=== PATIENT | female | born 1965 | race Caucasian/White ===

== ENCOUNTER 2016-09-19 19:27 | Emergency (ER) | payer OTHER | END 2016-09-19 21:01 | disposition home or self-care (01) | DX: R68.84 Jaw pain (principal); R03.0 Elevated blood-pressure reading, without diagnosis of hypertension ==

== ENCOUNTER 2016-10-10 15:44 | Outpatient (CLI) | payer OTHER ==
[2016-10-10] MEDS ORDERED: GADOBUTROL 10 MMOL/10 ML VIAL IVP ONE (16:40)
--- NOTE | 2016-10-10 18:21 | MRI Report ---
EXAM: MRI BRAIN WITHOUT AND WITH CONTRAST EXAM DATE: 10/10/2016 04:52 PM. CLINICAL HISTORY: Trigeminal neuralgia. COMPARISON: None. TECHNIQUE: Multiplanar, multisequence T1-weighted and fluid-sensitive MR sequences of the brain were performed. Sequences optimized for IAC and posterior fossa evaluation. Other: None. Without and with IV Contrast: Without and with 10 mm Gadavist. FINDINGS: IAC and posterior fossa: Unremarkable contours of the canalicular and cisternal segments of cranial n erves VII and VIII. No evidence for displacement or compression of the trigeminal nerves. Fluid signa l is present in Meckel's caves and within the inner ear structures bilaterally as expected. No abnorm al mass or enhancement in the posterior fossa including in the regions of the internal auditory canal s. Unremarkable symmetric-appearing cavernous sinuses. Brain Volume: Normal for age. Parenchyma/Dura: No masses, infarcts, or hemorrhage. No white matter lesions identified. Ventricles/Cisterns: Normal. No hydrocephalus. Sinuses: Minimal nonspecific maxillary and ethmoid mucosal thickening. Bones: No focal pathologic-appearing marrow signal changes in the skull or clivus. Other: None. IMPRESSION: 1. No focal lesions are identified in the posterior fossa to explain facial pain. 2. Unremarkable appearance of the brain, no acute abnormality or enhancing mass. 3. Minimal nonspecific paranasal sinus mucosal thickening. [facility] Referring Provider Line: [phone] SITE ID: [id number]
== END 2016-10-10 15:45 | disposition home or self-care (01) ==
LOC: DI 15:44
PROVIDERS: ATTEND Physician Assistant Medical
DX: G50.0 Trigeminal neuralgia (principal)
CPT/HCPCS: 70553; A9585

== ENCOUNTER 2016-11-21 14:18 | Outpatient (CLI) | payer OTHER ==
--- NOTE | 2016-11-22 07:48 | Mammography Report ---
DIGITAL BILATERAL SCREENING MAMMOGRAM: 11/21/2016 CLINICAL HISTORY: This is a 51-year-old female in for routine screening mammogram. Patient has no f amily history of breast cancer. Patient has no past history of breast surgeries. COMPARISON: 08/27/2007, 10/18/2010, 12/15/2014. TECHNIQUE: Craniocaudad and oblique lateral views of each breast were obtained with Hologic full-fie ld digital mammography. An axillary exaggerated craniocaudad view was done. FINDINGS: Breasts are primarily composed of adipose tissue. Interval appearance since preceding exa ms of an asymmetrical density on craniocaudad view in the inner aspect of the left breast. This asym metrical density measures 1 cm in diameter. It lies 9.4 cm medial to the left nipple. It is noted b oth on craniocaudad view and axillary exaggerated craniocaudad view. It is not seen on oblique later al view. It is also not seen on preceding exams. Recommend patient return for additional views of t he left breast including coned-down compression craniocaudad view and a lateral medial view. If hugo cated, a left breast ultrasound should also be done. No significant clusters of calcification are seen in the breasts. IMPRESSION: INTERVAL APPEARANCE SINCE PRECEDING EXAMS OF A 1 CM ASYMMETRICAL DENSITY IN THE INNER PECT OF THE LEFT BREAST. RECOMMEND PATIENT RETURN FOR ADDITIONAL VIEWS OF THE LEFT BREAST AND IF IND ICATED, LEFT BREAST ULTRASOUND. BI-RADS category 0. Incomplete. Needs additional imaging evaluation. Additional views of the left breast and if indicated, left breast ultrasound. STANDARD QUALIFYING STATEMENTS 1. This examination was reviewed with the aid of Computer-Aided Detection (CAD). 2. A negative or benign imaging report should not delay biopsy if clinically suspicious findings are present. Consider surgical consultation if warranted. More than 5% of cancers are not identified by i maging. 3. Dense breasts may obscure an underlying neoplasm. JOB #: [id number] EXT JOB #:[id number]
== END 2016-11-21 14:19 | disposition home or self-care (01) ==
LOC: DI 14:18
PROVIDERS: ATTEND Physician Assistant Medical
DX: Z12.31 Encounter for screening mammogram for malignant neoplasm of breast (principal); R92.2 Inconclusive mammogram
CPT/HCPCS: 77067

== ENCOUNTER 2016-12-05 12:40 | Outpatient (CLI) | payer OTHER ==
--- NOTE | 2016-12-05 14:21 | Mammography Report ---
DIGITAL DIAGNOSTIC LEFT MAMMOGRAM: 12/05/2016 CLINICAL INDICATION: Abnormal screening, asymmetry left breast. TECHNIQUE: Left true lateral, repeat CC, spot compression views. COMPARISON: 11/21/2016, 12/15/2014, 10/18/2010, 08/27/2007. FINDINGS: The left breast again demonstrates scattered fibroglandular densities. The asymmetry in th e inner left breast dissipates with additional compression. No underlying mass lesion or architectura l distortion is identified. IMPRESSION: NEGATIVE EXAMINATION. RECOMMENDATION: ROUTINE ANNUAL SCREENING UNLESS OTHERWISE CLINICALLY INDICATED. BIRADS CATEGORY 1-NEGATIVE. STANDARD QUALIFYING STATEMENTS 1. This examination was reviewed with the aid of Computer-Aided Detection (CAD). 2. A negative or benign imaging report should not delay biopsy if clinically suspicious findings are present. Consider surgical consultation if warranted. More than 5% of cancers are not identified by i maging. 3. Dense breasts may obscure an underlying neoplasm. JOB #: [id number] EXT JOB #:[id number]
== END 2016-12-05 12:41 | disposition home or self-care (01) ==
LOC: DI 12:40
PROVIDERS: ATTEND Physician Assistant Medical
DX: N63 Unspecified lump in breast (principal)

== ENCOUNTER → 2018-04-02 | Outpatient (CLI) | payer OTHER ==
[2018-04-02 12:28] LABS: BASOPHILS % (AUTO) 0.8 %; EOSINOPHILS # (AUTO) 0.3 10^3/uL (0.0-0.7); EOSINOPHILS % (AUTO) 4.1 %; HGB - HEMOGLOBIN 13.9 g/dL (12.0-16.0); LYMPHOCYTES # (AUTO) 1.5 10^3/uL (1.5-3.5); LYMPHOCYTES % (AUTO) 24.6 %; MEAN CORPUSCULAR HEMOGLOBIN 30.5 pg (27.0-31.0); MEAN CORPUSCULAR HGB CONC 33.7 g/dL (32.0-36.0); MEAN CORPUSCULAR VOLUME 90.5 fL (81.0-99.0); MEAN PLATELET VOLUME 7.6 fL (7.9-10.8); MONOCYTES # (AUTO) 0.5 10^3/uL (0.0-1.0); MONOCYTES % (AUTO) 8.1 %; NEUTROPHILS # (AUTO) 3.8 10^3/uL (1.5-6.6); NEUTROPHILS % (AUTO) 62.4 %; PLT - PLATELET COUNT 327 10^3/uL (130-450); RED BLOOD COUNT 4.57 10^6/uL (4.20-5.40); RED CELL DISTRIBUTION WIDTH 13.9 % (12.0-15.0); WHITE BLOOD COUNT 6.1 x10^3/uL (4.8-10.8)
[2018-04-02 12:51] LABS: ALBUMIN/GLOBULIN RATIO 1.4 (1.0-2.2); ALKALINE PHOSPHATASE 54 IU/L (42-121); ALT ALANINE AMINOTRANSFERASE 22 IU/L (10-60); AST ASPARTATE AMINOTRANSFERASE 20 IU/L (10-42); BILIRUBIN,TOTAL 0.5 mg/dL (0.2-1.0); BUN - BLOOD UREA NITROGEN 13 mg/dL (6-20); CALCIUM 8.6 mg/dL (8.5-10.3); CARBON DIOXIDE - CO2 26 mmol/L (21-32); CHLORIDE 105 mmol/L (101-111); CHOLESTEROL 190 mg/dL; CREATININE 0.8 mg/dL (0.4-1.0); GFR - MDRD 76 (>89); GLUCOSE 95 mg/dL (70-100); HDL CHOLESTEROL 48 mg/dL; LDL CHOLESTEROL,CALCULATED 125 mg/dL; LDL/HDL RATIO 2.6 (<4.4); SODIUM 137 mmol/L (135-145); TOTAL PROTEIN 6.8 g/dL (6.7-8.2); VLDL CHOLESTEROL 17 mg/dL
== END ==
LOC: LAB.WCP 08:00
PROVIDERS: ATTEND Physician Assistant Medical
DX: Z00.00 Encounter for general adult medical examination without abnormal findings (principal)
CPT/HCPCS: 36415; 80053; 80061; 83721; 84443; 85025

== ENCOUNTER 2018-08-18 15:29 | Outpatient (CLI) | payer OTHER ==
--- NOTE | 2018-08-18 16:27 | XRAY Report ---
Reason: CHEST PAIN Procedure Date: 08/18/2018 Accession Number: [id number] / [id number] Procedure: WCP - Chest 2 View X-Ray CPT Code: 61471 FULL RESULT: EXAM: CHEST RADIOGRAPHY EXAM DATE: 08/18/2018 03:38 PM. CLINICAL HISTORY: CHEST PAIN. COMPARISON: None. TECHNIQUE: 2 views. FINDINGS: Lungs/Pleura: No focal opacities evident. No pleural effusion. No pneumothorax. Normal volumes. Mediastinum: Heart and mediastinal contours are unremarkable. Other: None. IMPRESSION: Normal 2-view chest radiography. [facility]
== END 2018-08-18 15:30 | disposition home or self-care (01) ==
LOC: DI.WCP 15:29
PROVIDERS: ATTEND Physician Assistant Medical
DX: R07.9 Chest pain, unspecified (principal)
CPT/HCPCS: 71046

== ENCOUNTER 2018-09-10 07:43 | Outpatient (CLI) | payer OTHER ==
--- NOTE | 2018-09-10 08:56 | Mammography Report ---
Reason: SCREENING MAMMO Procedure Date: 09/10/2018 Accession Number: [id number] / [id number] Procedure: ANGIE - Screening Mammo w/Paulo CPT Code: FULL RESULT: EXAM: Screening Mammo w/Paulo DATE: 09/10/2018 8:27 AM CLINICAL HISTORY: Screening examination. History of early menses TECHNIQUE: (B) - Bilateral CC and MLO views were obtained. A left medially exaggerated CC view was obtained. COMPARISON: 12/05/2016 through 12/15/2014. PARENCHYMAL PATTERN: (A) - The breast(s) demonstrate(s) scattered fibroglandular densities. FINDINGS: There are coarse typically benign calcifications. There are no suspicious masses, calcifications, or areas of distortion. IMPRESSION: Benign findings. BI-RADS category 2. RECOMMENDATION: (ANNUAL) - Recommend routine annual screening mammography. BI-RADS CATEGORY: (2) - Benign Findings. STANDARD QUALIFYING STATEMENTS: 1. This examination was not reviewed with the aid of Computer-Aided Detection (CAD). 2. A negative or benign imaging report should not preclude biopsy if clinically suspicious findings are present. 3. Dense breasts may obscure an underlying neoplasm. 4. This examination was reviewed with the aid of 3D breast imaging (tomosynthesis).
== END 2018-09-10 07:44 | disposition home or self-care (01) ==
LOC: DI 07:43
DX: Z12.31 Encounter for screening mammogram for malignant neoplasm of breast (principal)
CPT/HCPCS: 77063; 77067

== ENCOUNTER 2018-09-17 12:43 | Outpatient (CLI) | payer OTHER ==
--- NOTE | 2018-09-17 17:10 | CARDIAC PROCEDURE NOTE ---
DATE OF SERVICE: 09/17/2018 Physician: Shanique Tenorio MD, [facility] INDICATIONS: Chest pain. CARDIAC RISK FACTORS: Obesity (229 pounds), family history of heart disease and ex-smoker (quit five years ago). PROCEDURE: After signing Informed consent, the patient underwent a Rosalio- protocol treadmill stress test with Nuclear myocardial perfusion imaging. RESTING HEART RATE: 99. Peak heart rate: 146 (86% predicted maximum heart rate for age). RESTING BLOOD PRESSURE: 125/90. Peak blood pressure: 149/70. The patient exercised for 5 minutes and 8 seconds on Rosalio protocol treadmill stress test. She achieved a peak heart rate of 146 (86% predicted max HR for ager) and 7.1 METS. The patient developed [id number] shortness of breath. Oxygen saturation was 98% on room air at this time. She developed no chest pain with exercise. BASELINE EKG: Normal sinus rhythm, first-degree block, left atrial enlargement, vertical axis, rare PVCs. EKG AT [facility]: T-wave flattening in leads II, III and aVF and V3 through V6, and [address]-segment depressions in leads II, III, and aVF. A rare PVC was also seen. SUMMARY 1. Abnormal resting EKG. 2. Fair-Poor exercise tolerance. Normal blood pressure response to exercise, but accelerated heart rate response to exercise. 3. Abnormal ST and T-wave changes concerning for ischemia, on this exercise stress test, at an adequate level of stress achieved. 4. Nuclear images reported separately. TD: 09/17/2018 15:43 FABIO
--- NOTE | 2018-09-18 08:16 | Nuclear Medicine Report ---
Reason: CHEST PAIN Procedure Date: 09/17/2018 Accession Number: [id number] / [id number] Procedure: NM - Myocardial Perfusion STR/RST CPT Code: FULL RESULT: EXAM: SINGLE-ISOTOPE EXERCISE STRESS TEST. SINGLE-ISOTOPE AND ONE-DAY REST/STRESS MYOCARDIAL PERFUSION SCANS WITH TOMOGRAPHIC IMAGING, QUANTITATIVE ANALYSIS, WALL MOTION ANALYSIS AND CALCULATION OF EJECTION FRACTION. EXAM DATE: 09/17/2018 05:17 PM. CLINICAL HISTORY: CHEST PAIN. COMPARISON: None available. TECHNIQUE: A rest myocardial perfusion scan was done with tomography after the intravenous administration of 10.6 mCi Tc-99m sestamibi. After an appropriate delay, a treadmill exercise stress was performed according to department protocol. The patient exercised for 5 minutes and 8 seconds. The maximum heart rate was 146 bpm, which was 86% of the maximum predicted heart rate of 169 bpm. At approximately peak heart rate, 43 mCi of Tc-99m sestamibi was injected for stress myocardial perfusion scan. Motion correction was applied when appropriate. Gated tomographic images were obtained for wall motion analysis and computation of left ventricular ejection fraction. FINDINGS: On visual analysis, there is a mild partially fixed and partially reversible defect in the mid to distal anteroseptal wall versus breast attenuation artifact. Computer analysis Summed stress score 5 Summed rest score 0 Summed difference score 5 Wall motion analysis demonstrates no focal wall motion abnormality. The left ventricular end-diastolic volume is 75 cc. The left ventricular end-systolic volume is 22 cc. The left ventricular ejection fraction is calculated to be 71%. IMPRESSION: 1. On visual analysis, there is a mild partially fixed and partially reversible defect in the mid to distal anteroseptal wall. 2. Normal left ventricular ejection fraction of 71%. 3. Normal segmental and global wall motion. 4. Normal left ventricular cavity size, no change with stress. 5. Based on computer analysis, mildly abnormal study with moderate ischemia. Please correlate findings with stress ECG tracings and procedure notes. [facility]
== END 2018-09-17 12:44 | disposition home or self-care (01) ==
LOC: DI 12:43
PROVIDERS: ATTEND Physician Assistant Medical
DX: R07.9 Chest pain, unspecified (principal); R94.31 Abnormal electrocardiogram [ECG] [EKG]; Z87.891 Personal history of nicotine dependence; Z82.49 Family history of ischemic heart disease and other diseases of the circulatory system
CPT/HCPCS: 78452; 93017; A9500

== ENCOUNTER 2019-06-28 11:20 | Outpatient (CLI) | payer OTHER, BC | END 2019-06-28 11:21 | disposition critical access hospital (66) | LOC: EMS 11:20 | PROVIDERS: ATTEND Surgery | DX: M54.5 Low back pain (principal); V58.4XXA Person boarding or alighting a pick-up truck or van injured in noncollision transport accident, initial encounter; Y93.89 Activity, other specified; Y99.0 Civilian activity done for income or pay | CPT/HCPCS: A0425; A0427 ==

== ENCOUNTER 2019-06-28 11:46 | Emergency (ER) | payer OTHER, BC ==
--- NOTE | 2019-06-28 12:21 | ED Physician Documentation ---
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 Altered mental status after the event. Reportedly thought that the year was 2001. She still remains slightly confused. She initially complained of back pain. Worse with movement and better with rest. Received fentanyl en route Review of Systems Unable to obtain: AMS Constitutional: denies: Fever GI: denies: Vomiting Skin: denies: Rash Neurologic: denies: Focal weakness, Numbness PD PAST MEDICAL HISTORY - Past Medical History Past Medical History: No - Past Surgical History Past Surgical History: Yes HEENT: Tonsil/Adenoidectomy - Present Medications Home Medications: Ambulatory Orders Medication Instructions Recorded Confirmed Gabapentin [Neurontin] 300 mg PO TID #90 capsule 09/19/16 Cyclobenzaprine [Flexeril] 10 mg PO TID PRN #20 tablet 06/28/19 Meloxicam [Mobic] 15 mg PO DAILY PRN #20 tablet 06/28/19 - Allergies Allergies/Adverse Reactions: Allergies Allergy/AdvReac Type Severity Reaction Status Date / Time codeine Allergy Emesis Verified 06/28/19 11:51 - Social History Does the pt smoke?: No Smoking Status: Never smoker Does the pt drink ETOH?: No Does the pt have substance abuse?: No - Immunizations Immunizations are current?: Yes PD ED PE NORMAL - Vitals Vital signs reviewed: Yes - General General: No acute distress, Other (Alert, oriented to person and place. 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, No motor deficit, No sensory deficit Eye Opening: Spontaneous Motor: Obeys Commands Verbal: Confused GCS Score: 14 - Psych Psych: Normal mood, Normal affect Results - Vitals Vitals: Vital Signs - 24 hr 06/28/19 06/28/19 11:51 12:00 Temperature 36.7 C Heart Rate 88 85 Respiratory 14 18 Rate Blood Pressure 138/82 H 132/92 H O2 Saturation 94 95 Oxygen O2 Source Room air - Labs Labs: Laboratory Tests 06/28/19 06/28/19 06/28/19 12:30 12:30 13:32 WBC 9.4 RBC 4.63 Hgb 13.8 Hct 42.3 MCV 91.4 MCH 29.8 MCHC 32.6 RDW 13.4 Plt Count 303 MPV 8.7 Neut # (Auto) 7.6 H Lymph # (Auto) 1.1 L [place] # (Auto) 0.6 Eos # (Auto) 0.1 Baso # (Auto) 0.1 Absolute Nucleated RBC 0.00 Nucleated RBC % 0.0 Sodium 136 Potassium 3.5 Chloride 99 L Carbon Dioxide 23 Anion Gap 14.0 H BUN 15 Creatinine 0.7 Estimated GFR (MDRD) 88 L Glucose 134 H Calcium 8.8 Total Bilirubin 0.5 AST 21 ALT 24 Alkaline Phosphatase 62 Total Protein 6.9 Albumin 4.0 Globulin 2.9 Albumin/Globulin Ratio 1.4 Lipase 28 Urine Color YELLOW Urine Clarity HAZY Urine pH 7.5 Ur Specific [place] 1.015 Urine Protein NEGATIVE Urine Glucose (UA) NEGATIVE Urine Ketones TRACE Urine Occult Blood TRACE-INTA Urine Nitrite NEGATIVE Urine Bilirubin NEGATIVE Urine Urobilinogen 0.2 (NORMAL) Ur Leukocyte Esterase MODERATE H Urine RBC 0-5 Urine WBC 11-25 H Ur Squamous Epith Cells MANY Squamous H Urine Bacteria Few Ur Microscopic Review INDICATED Urine Culture Comments NOT INDICATED - Rads (name of study) Head CT Radiology: Prelim report reviewed, EMP read contemporaneously, See rad report (No acute findings) Cervical spine CT Radiology: Prelim report reviewed, EMP read contemporaneously, See rad report (No acute findings) Lumbar spine x-ray Radiology: Prelim report reviewed, EMP read contemporaneously, See rad report (No acute findings) PD MEDICAL DECISION MAKING - ED course Complexity details: reviewed results, re-evaluated patient, considered differential, d/w patient, d/w family ED course: Mental status gradually cleared back to her normal baseline. CT scans are negative. Lumbar spine x-ray is negative. Feels better after Toradol and Flexeril. Ambulating well. We will continue supportive care at home. Abdomen is soft, nontender nondistended on serial exam. No neurological deficits. No tenderness over the bilateral hip joints. Patient counseled regarding signs and symptoms for which I believe and urgent re-evaluation would be necessary. Patient with good understanding of and agreement to plan and is comfortable g oing home at this time This document was made in part using voice recognition software. While efforts are made to proofread this document, sound alike and grammatical errors may occur. Departure - Departure Disposition: Home, Self Care Clinical Impression: Back muscle spasm Closed head injury Qualifiers: Encounter type: initial encounter Qualified Code(s): S09.90XA - Unspecified injury of head, initial encounter Fall Qualifiers: Encounter type: initial encounter Qualified Code(s): W19.XXXA - Unspecified fall, initial encounter Condition: Good Instructions: ED Head Injury Closed, ED Spasm Back No Trauma Follow-Up: Zainab Segovia PA-C [Primary Care Provider] - Within 1 week Prescriptions: Cyclobenzaprine [Flexeril] 10 mg PO TID PRN #20 tablet PRN Reason: Spasms Meloxicam [Mobic] 15 mg PO DAILY PRN #20 tablet PRN Reason: pain Comments: Return if you worsen. Follow-up with your doctor for further care. Use the medications as prescribed. Do not drive or operate heavy machinery while taking the Flexeril. Forms: Activity restrictions
[2019-06-28 12:38] LABS: BASOPHILS # (AUTO) 0.1 10^3/uL (0.0-0.1); BASOPHILS % (AUTO) 0.5 %; EOSINOPHILS # (AUTO) 0.1 10^3/uL (0.0-0.7); EOSINOPHILS % (AUTO) 0.6 %; HGB - HEMOGLOBIN 13.8 g/dL (12.0-16.0); LYMPHOCYTES # (AUTO) 1.1 10^3/uL (1.5-3.5); LYMPHOCYTES % (AUTO) 11.3 %; MEAN CORPUSCULAR HEMOGLOBIN 29.8 pg (27.0-31.0); MEAN CORPUSCULAR HGB CONC 32.6 g/dL (32.0-36.0); MEAN CORPUSCULAR VOLUME 91.4 fL (81.0-99.0); MEAN PLATELET VOLUME 8.7 fL (7.9-10.8); MONOCYTES # (AUTO) 0.6 10^3/uL (0.0-1.0); NEUTROPHILS # (AUTO) 7.6 10^3/uL (1.5-6.6); NEUTROPHILS % (AUTO) 80.9 %; PLT - PLATELET COUNT 303 10^3/uL (130-450); RED BLOOD COUNT 4.63 10^6/uL (4.20-5.40); RED CELL DISTRIBUTION WIDTH 13.4 % (12.0-15.0); WHITE BLOOD COUNT 9.4 x10^3/uL (4.8-10.8)
[2019-06-28 12:52] LABS: ALBUMIN/GLOBULIN RATIO 1.4 (1.0-2.2); BILIRUBIN,TOTAL 0.5 mg/dL (0.2-1.0); CALCIUM 8.8 mg/dL (8.5-10.3); CREATININE 0.7 mg/dL (0.4-1.0); TOTAL PROTEIN 6.9 g/dL (6.7-8.2)
--- NOTE | 2019-06-28 13:15 | CT Report ---
Reason: fall, head injury Procedure Date: 06/28/2019 Accession Number: [id number] / [id number] Procedure: CT - HEAD WO CPT Code: Final Report FULL RESULT: EXAM: CT HEAD EXAM DATE: 06/28/2019 12:42 PM. CLINICAL HISTORY: Fall, head injury. COMPARISON: None. TECHNIQUE: Multiaxial CT images were obtained from the foramen magnum to the vertex. Reformats: Sagittal and coronal. IV contrast: None. In accordance with CT protocol optimization, one or more of the following dose reduction techniques were utilized for this exam: automated exposure control, adjustment of mA and/or KV based on patient size, or use of iterative reconstructive technique. FINDINGS: Parenchyma: No intraparenchymal hemorrhage. No evidence of mass, midline shift, or CT findings of infarction. Jerome-white differentiation is distinct. Extraaxial Spaces: Normal for age. No subdural or epidural collections identified. Ventricles: Normal in size and position. Sinuses and Orbits: Minimal mucosal thickening of the left maxillary sinus. Other paranasal sinuses and mastoid air cells are clear. Bones: No evidence of fracture or calvarial defect. Other: None. IMPRESSION: No acute intracranial abnormality. [facility]
--- NOTE | 2019-06-28 13:20 | CT Report ---
Reason: fall, neck injury Procedure Date: 06/28/2019 Accession Number: [id number] / [id number] Procedure: CT - CERVICAL SPINE WO CPT Code: Final Report FULL RESULT: EXAM: CT CERVICAL SPINE WITHOUT CONTRAST DATE: 06/28/2019 12:42 PM. HISTORY: Fall, neck injury. COMPARISONS: None. TECHNIQUE: Thin-section axial images were acquired of the cervical spine without contrast. Post-processing: Coronal and sagittal reformats. Other: None. In accordance with CT protocol optimization, one or more of the following dose reduction techniques were utilized for this exam: automated exposure control, adjustment of mA and/or KV based on patient size, or use of iterative reconstructive technique. FINDINGS: Alignment: No scoliosis or spondylolisthesis. Bones: No fracture or bone lesion. Interspace Levels/Facets: C1-C2: Unremarkable. C2-C3: Unremarkable. C3-C4: Unremarkable. C4-C5: Unremarkable. C5-C6: There is mild disk osteophyte spurring. Disk height maintained. C6-C7: There is mild anterior and posterior disk osteophyte spurring. There is mild narrowing of the central spinal canal. Facet joints appear in satisfactory alignment. C7-T1: There is right greater than left facet joint space narrowing and spurring. The disk height is maintained. Musculature: Normal. No fatty atrophy. Other: The paravertebral and prevertebral soft tissues are unremarkable. No apical pneumothorax. IMPRESSION: 1. Mild degenerative disk and facet disease of the lower cervical spine. Negative for fracture and subluxation. [facility]
--- NOTE | 2019-06-28 13:26 | XRAY Report ---
Reason: fall, back pain Procedure Date: 06/28/2019 Accession Number: [id number] / [id number] Procedure: XR - Lumbar Spine 2 View CPT Code: Final Report FULL RESULT: EXAM: LUMBOSACRAL SPINE RADIOGRAPHY EXAM DATE: 06/28/2019 12:34 PM. CLINICAL HISTORY: Back pain status post fall. COMPARISONS: ABDOMEN/PELVIS W/WO 07/09/2013 2:29 PM. TECHNIQUE: 2 views. FINDINGS: Alignment: Normal. No spondylolisthesis or scoliosis. Bones: Five [id number]-[id number] lumbar vertebral bodies are present. No fractures or bone lesions. Disks: Lumbar disk spaces are normal in thickness as before. Small periarticular osteophytes are present particularly from the L3-L5 levels as before unchanged. Facets: No degenerative changes. Sacroiliac Joints: Unremarkable. Soft Tissues: Normal. The visualized bowel gas pattern is normal. IMPRESSION: 1. No fracture or malalignment. 2. Mild degenerative disk disease particularly from L3-L5 unchanged. [facility]
[2019-06-28 13:41] LABS: BILIRUBIN,URINE NEGATIVE (NEGATIVE); GLUCOSE, URINE (UA) NEGATIVE (NEGATIVE); KETONES,URINE (UA) TRACE mg/dL (NEGATIVE); LEUKOCYTE ESTERASE, URINE MODERATE (NEGATIVE); NITRITE,URINE NEGATIVE (NEGATIVE); OCCULT BLOOD,URINE TRACE-INTA (NEGATIVE); PH,URINE 7.5 PH (5.0-7.5); PROTEIN,URINE NEGATIVE (NEGATIVE); UROBILINOGEN,URINE 0.2 (NORMAL) E.U./dL (NORMAL)
[2019-06-28 13:49] LABS: CLARITY,URINE HAZY (CLEAR)
[2019-06-28 13:50] LABS: BACTERIA,URINE Few /HPF (None Seen); RBC,URINE 0-5 /HPF (0-5); SQUAMOUS EPITHELIAL CELL,UR MANY Squamous (<= Few)
[2019-06-28] MEDS ORDERED: CYCLOBENZAPRINE 10 MG TABLET PO STA (14:03)
[2019-06-28] MEDS ORDERED: KETOROLAC 60 MG/2 ML VIAL IM STA (14:03)
[2019-06-28 14:12] VITALS: BP 133/78
[2019-06-28] MEDS ORDERED: KETOROLAC 30 MG/ML VIAL IVP STA (14:14)
== END 2019-06-28 14:38 | disposition home or self-care (01) ==
LOC: EDUNIT# → ED 11:46
DX: S09.90XA Unspecified injury of head, initial encounter (principal); M62.830 Muscle spasm of back; V87.8XXA Person injured in other specified noncollision transport accidents involving motor vehicle (traffic), initial encounter; Y93.89 Activity, other specified; Y99.0 Civilian activity done for income or pay
CPT/HCPCS: 36415; 70450; 72100; 72125; 80053; 81001; 83690; 85025; 96374; 99283; 99284; A9270; 81003; 87086

== ENCOUNTER 2019-06-30 12:26 | Outpatient (CLI) | payer OTHER, BC ==
--- NOTE | 2019-06-30 21:48 | XRAY Report ---
Reason: CONTUSION OF LOWER BACK PELVIS, SEQUELA, COCCYDY Procedure Date: 06/30/2019 Accession Number: [id number] / [id number] Procedure: XR - Lumbar Spine Complete CPT Code: Final Report FULL RESULT: EXAM: LUMBOSACRAL SPINE RADIOGRAPHY. EXAM DATE: 06/30/2019 12:57 PM. CLINICAL HISTORY: Contusion of lower back, pelvis, sequela, coccydy. COMPARISONS: LUMBAR SPINE 2 VIEW 06/28/2019 12:34 PM. TECHNIQUE: 4 views. Frontal, lateral, bilateral oblique. FINDINGS: Alignment: Normal. No spondylolisthesis or scoliosis. Bones: Five nsj-pzi-qybhxwt lumbar vertebral bodies are present. Interval development of a mild wedge compression fracture of the L2 vertebral body superior endplate. Mild, 25%, compression deformity of the superior endplate is seen greatest anteriorly. No involvement of posterior vertebral body or posterior elements is appreciated. Disks: Minimal anterior osteophyte formation is seen at L3-L4 and L4-L5. Disk heights are maintained. Facets: No degenerative changes. Sacroiliac Joints: Unremarkable. Soft Tissues: Normal. The visualized bowel gas pattern is normal. IMPRESSION: 1. Development of mild wedge compression fracture of the L2 vertebral body superior endplate. 2. Normal alignment is seen. 3. Mild spondylosis and degenerative disk change at L3-L4 and L4-L5. [facility]
--- NOTE | 2019-07-01 09:12 | XRAY Report ---
Reason: CONTUSION OF LOWER BACK PELVIS, SEQUELA, COCCYDY Procedure Date: 06/30/2019 Accession Number: [id number] / [id number] Procedure: XR - Hips 2V BILAT CPT Code: Final Report FULL RESULT: EXAM: BILATERAL HIP RADIOGRAPHY EXAM DATE: 06/30/2019 12:57 PM. CLINICAL HISTORY: Fall at work on 06/28/2019. Bilateral hip and low back pain. COMPARISON: LUMBAR SPINE 2 VIEW 06/28/2019 12:34 PM LUMBAR SPINE COMPLETE 06/30/2019 12:35 PM ABDOMEN/PELVIS W/WO 07/09/2013 2:29 PM. TECHNIQUE: 2 views each. FINDINGS: Bones: Partially imaged L2 fracture. No fracture seen within the pelvis or hips. Joints: Normal alignment at the hips, sacroiliac joints, and pubic symphysis. The hip joint spaces are maintained. No osteophytosis, subchondral sclerosis, or other significant arthritic change. Soft Tissues: An IUD projects within the pelvis. Tiny right intrapelvic phleboliths. IMPRESSION: 1. Partially imaged L2 fracture. See separate report for lumbar spine radiographs. 2. No acute bony abnormality or of significant arthritic change at the hips. [facility]
== END 2019-06-30 12:27 | disposition home or self-care (01) ==
LOC: DI 12:26
PROVIDERS: ATTEND Nurse Practitioner Family
DX: S32.020A Wedge compression fracture of second lumbar vertebra, initial encounter for closed fracture (principal); M51.36 Other intervertebral disc degeneration, lumbar region; M47.816 Spondylosis without myelopathy or radiculopathy, lumbar region; M53.3 Sacrococcygeal disorders, not elsewhere classified; S30.0XXS Contusion of lower back and pelvis, sequela; Z97.5 Presence of (intrauterine) contraceptive device
CPT/HCPCS: 72110; 73521

== ENCOUNTER 2019-11-17 10:00 | Outpatient (CLI) | payer OTHER, BC ==
--- NOTE | 2019-11-17 10:54 | XRAY Report ---
PROCEDURE: Lumbar Spine 2 View INDICATIONS: WEDGE OF 2ND LUMBAR VERTEBRA TECHNIQUE: 3 views of the lumbar spine were acquired. COMPARISON: 06/30/2019 lumbar spine. FINDINGS: Bones: Mild L2 compression fracture which appears unchanged since 06/30/2019. Scattered multilevel e ndplate spurring and diffuse facet arthropathy. Mild levocurvature. Diffuse mild narrowing of the lumbar disc spaces. Bilateral sacroiliac degenerati ve sclerosis and spurring. Grade 1 anterolisthesis of L5 on S1 Soft tissues: Overlying bowel gas pattern is normal. No suspicious soft tissue calcifications. IMPRESSION: Mild L2 compression fracture which appears unchanged. Mild levocurvature and diffuse spondylosis. Grade 1 anterolisthesis of L5 on S1 Reviewed by: Geronimo Decker MD on 11/17/2019 10:53 AM PDT Approved by: Geronimo Decker MD on 11/17/2019 10:53 AM PDT Station ID: [id number]
== END 2019-11-17 10:01 | disposition home or self-care (01) ==
LOC: DI 10:00
PROVIDERS: ATTEND Nurse Practitioner Family
DX: S32.020D Wedge compression fracture of second lumbar vertebra, subsequent encounter for fracture with routine healing (principal); M43.17 Spondylolisthesis, lumbosacral region
CPT/HCPCS: 72100

== ENCOUNTER 2020-06-15 08:36 | Outpatient (CLI) | payer BC ==
[2020-06-15 11:55] LABS: BASOPHILS % (AUTO) 0.7 %; EOSINOPHILS # (AUTO) 0.2 10^3/uL (0.0-0.7); EOSINOPHILS % (AUTO) 3.9 %; HGB - HEMOGLOBIN 14.6 g/dL (12.0-16.0); LYMPHOCYTES # (AUTO) 1.3 10^3/uL (1.5-3.5); LYMPHOCYTES % (AUTO) 24.2 %; MEAN CORPUSCULAR HEMOGLOBIN 29.6 pg (27.0-31.0); MEAN CORPUSCULAR HGB CONC 31.9 g/dL (32.0-36.0); MEAN CORPUSCULAR VOLUME 92.7 fL (81.0-99.0); MEAN PLATELET VOLUME 9.5 fL (7.9-10.8); MONOCYTES # (AUTO) 0.5 10^3/uL (0.0-1.0); MONOCYTES % (AUTO) 9.9 %; NEUTROPHILS # (AUTO) 3.3 10^3/uL (1.5-6.6); NEUTROPHILS % (AUTO) 61.1 %; PLT - PLATELET COUNT 348 10^3/uL (130-450); RED BLOOD COUNT 4.93 10^6/uL (4.20-5.40); RED CELL DISTRIBUTION WIDTH 13.4 % (12.0-15.0); WHITE BLOOD COUNT 5.5 x10^3/uL (4.8-10.8)
[2020-06-15 12:32] LABS: ALBUMIN 4.2 g/dL (3.2-5.5); ALBUMIN/GLOBULIN RATIO 1.3 (1.0-2.2); ALKALINE PHOSPHATASE 54 IU/L (42-121); ALT ALANINE AMINOTRANSFERASE 20 IU/L (10-60); AST ASPARTATE AMINOTRANSFERASE 17 IU/L (10-42); BILIRUBIN,TOTAL 0.5 mg/dL (0.2-1.0); BUN - BLOOD UREA NITROGEN 18 mg/dL (6-20); CARBON DIOXIDE - CO2 23 mmol/L (21-32); CHLORIDE 104 mmol/L (101-111); CHOL/HDL RATIO 3.4 (<4.4); CHOLESTEROL 218 mg/dL; CREATININE 0.8 mg/dL (0.4-1.0); GLUCOSE 100 mg/dL (70-100); HDL CHOLESTEROL 64 mg/dL; LDL CHOLESTEROL,CALCULATED 138 mg/dL; LDL/HDL RATIO 2.2 (<4.4); LIPASE 52 U/L (22-51); SODIUM 137 mmol/L (135-145); TOTAL PROTEIN 7.4 g/dL (6.7-8.2); VLDL CHOLESTEROL 16 mg/dL
== END 2020-06-15 23:59 | disposition home or self-care (01) ==
LOC: LAB.WCP 08:36
PROVIDERS: ATTEND Physician Assistant Medical
DX: Z00.00 Encounter for general adult medical examination without abnormal findings (principal); R10.11 Right upper quadrant pain
CPT/HCPCS: 36415; 80053; 80061; 83690; 83721; 84443; 85025

== ENCOUNTER 2020-07-02 07:09 | Outpatient (CLI) | payer BC ==
--- NOTE | 2020-07-02 08:19 | Ultrasound Report ---
PROCEDURE: Abdomen Limited INDICATIONS: RIGHT UPPER QUADRANT ABDOMINAL PAIN TECHNIQUE: Real-time focused scanning was performed of the abdomen, with image documentation. COMPARISON: Prior CT examinations: 07/09/2013, 08/16/2011, 04/07/2011 FINDINGS: The liver demonstrates prominent size. The liver demonstrates mildly increased echogenicit y, which limits ultrasound sensitivity for detection of masses. No gallstones or sludge can be seen. The gallbladder wall does not appear thickened. There is no spec ific pericholecystic fluid. The sonographic Lorenzo's sign is negative. No biliary ductal dilatation is seen. The common bile duct measures 3 mm. The visualized pancreas is within normal limits. At the inferior pole of the right kidney, there is a simple cyst seen that measures up to 5.4 cm. The visualized right kidney is otherwise unremarkable. The IVC is patent. IMPRESSION: The gallbladder demonstrates a normal sonographic appearance. No biliary dilatation is seen. Increased liver echogenicity is seen. This is nonspecific, yet it is most commonly attributed to fatt y infiltration. Simple appearing right renal cyst incidentally noted. Reviewed by: Felipe Carlosn MD on 07/02/2020 7:17 AM [place] Approved by: Felipe Carlson MD on 07/02/2020 7:17 AM [facility] Station ID: [id number]
== END 2020-07-02 07:10 | disposition home or self-care (01) ==
LOC: DI 07:09
PROVIDERS: ATTEND Physician Assistant Medical
DX: R10.11 Right upper quadrant pain (principal); N28.1 Cyst of kidney, acquired

== ENCOUNTER 2020-07-27 09:38 | Outpatient (CLI) | payer OTHER, BC ==
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
== END 2020-07-27 09:39 | disposition home or self-care (01) ==
LOC: DI 09:38
PROVIDERS: ATTEND Nurse Practitioner Family
DX: R42 Dizziness and giddiness (principal)